=== PATIENT | female | born 1960 | race Caucasian/White ===

== ENCOUNTER → 2019-11-15 10:32 | Outpatient (BNVA) | payer BC, SELFPAY | PROVIDERS: Family Provider Family Medicine; PCP Family Medicine; Visit Provider Specialist | DX: F42.9 Obsessive-compulsive disorder, unspecified (principal); G10 Huntington's disease; E66.9 Obesity, unspecified | CPT/HCPCS: 99214 ==

== ENCOUNTER → 2020-04-11 11:02 | Outpatient (BNVA) | payer BC, SELFPAY | PROVIDERS: Family Provider Family Medicine; PCP Family Medicine; Visit Provider Specialist | DX: G10 Huntington's disease (principal); F42.9 Obsessive-compulsive disorder, unspecified; Z87.891 Personal history of nicotine dependence | CPT/HCPCS: 99213 ==